=== PATIENT | female | born 1945 | race Caucasian/White ===

== ENCOUNTER 2016-08-24 19:54 | Emergency (ER) | payer OTHER ==
[~2016-08-24] VITALS: Ht 167.6 cm; Wt 59.4 kg
[~2016-08-24 19:54] MED LIST: ACTOS30 MG PO; AMITRIPTYLINE H25 M2; ATORVASTATIN CA40 MG PO; CALCIUM 500 +1 EAC5 PO; CELECOXIB200 M1; CITRATE OF1.75 GM/30 PO; ECOTRIN81 MG PO; LASIX40 M1 PO; MAGNESIUM OXID400 M1 PO; MEDROL DOSEPAK1 PAC PO; METFORMIN HCL500 MG PO; OMEPRAZOLE40 M1 PO; PROAIR HFA0.09 MG/Ac INH; PROAIR HFA8.5 GM INH; ROBITUSSIN W/CO10 ML PO; SYMBICORT 16010.2 GM INH; TRAMADOL HCL50 M1 PO; ZITHROMAX Z-PA250 MG PO
--- NOTE | 2016-08-24 21:09 | ED NECK/BACK PAIN COMPLAINT ---
History of Present Illness General Chief Complaint: Low Back Pain/Injury Stated Complaint: LOW BACK PAIN, INJURY WHILE OPENING A WINDOW Source: patient, family Exam Limitations: no limitations Vital Signs & Intake/Output Vital Signs & Intake/Output Vital Signs Date Time Temp Pulse Resp B/P Pulse O2 O2 Flow FiO2 Ox Delivery Rate 08/246 97.3 91 18 100/73 98 Room Air 08/24 1957 97.8 96 18 83/56 98 Room Air Allergies Coded Allergies: poison tayler extract (RASH, HIVES SEVERE 08/11/15) squash (YELLOW- VOMITING, BUTTERNUT - SEVERE PAIN THROUGH BODY 08/11/15) Reconcile Medications Albuterol Sulfate (Proair Hfa) 90 MCG HFA.AER.AD 2 PUF INH PRN RESPIRATORY ( Reported) Aspirin (Ecotrin) 81 MG ECT 1 TAB PO AD HEART/BLOOD (Reported) Atorvastatin Calcium (Lipitor) 40 MG TAB 1 TAB PO DAILY CHOLESTEROL (Reported ) Budesonide/Formoterol Fumarate (Symbicort 160-4.5 Mcg Inhaler) 160 MCG-4.5 MCG/ ACTUATION HFA.AER.AD 2 PUF INH BID RESPIRATORY (Reported) Calcium Carbonate/Vitamin D3 (Calcium 500 + D Tablet) (Unknown Strength) TABLET (Unknown Dose) PO DAILY SUPPLEMENT (Reported) Cyclobenzaprine HCl 5 MG TABLET 1 TAB PO Q8P PRN PAIN Furosemide (Lasix) 40 MG TABLET 1 TAB PO BID leg edema Ibuprofen 600 MG TABLET 1 TAB PO TID PRN PAIN with food Magnesium Oxide 400 MG TABLET 1 TAB PO DAILY low magnesium Metformin Hydrochloride (Metformin HCl) 500 MG TAB 1 TAB PO BID DIABETES ( Reported) Omeprazole 40 MG CAPSULE.DR 1 CAP PO BID GI (Reported) Pioglitazone Hydrochloride (Actos) 30 MG TAB 1 TAB PO DAILY DIABETES ( Reported) Tramadol HCl 50 MG TABLET 1 TAB PO PRN PAIN (Reported) Triage Note: PT STATES THAT SHE WAS OPENING THE WINDOW AT HOME WHEN SHE FELT A SHARP PAIN ACROSS HER LOW BACK. PAIN HAS BEEN CONSTANT AND IS 10/10, PT HAVING HARD TIME SITTING STILL AT TRIAGE Triage Nurses Notes Reviewed? yes HPI: Approximately noon this afternoon the patient was opening up a window that was stuck. She has sudden onset of low back pain. The pain radiates across her lower back. There is no radiation down her legs. There is no weakness or numbness. There is no incontinence of bowel or bladder. The pain is aching and throbbing in nature. The pain increases with ambulation. She rates the pain as 8 out of 10. Patient states that the pain is making her feel nauseous. Past History Travel History Traveled to [place] past 21 day No Medical History Any Pertinent Medical History? 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 No Review of Systems Review of Systems Constitutional: Reports: no symptoms. Ears, Nose, Throat, Mouth: Reports: no symptoms. Respiratory: Reports: no symptoms. Cardiovascular: Reports: no symptoms. Musculoskeletal: Reports: see HPI, back pain. Neurological/Psychological: Reports: no symptoms. Physical Exam Physical Exam General Appearance: well developed/nourished, alert, awake, moderate distress Head: atraumatic Eyes: Bilateral: PERRL, EOMI. Neck: normal inspection, supple, full range of motion Respiratory: normal breath sounds, chest non-tender, no respiratory distress, lungs clear Cardiovascular: regular rate/rhythm, normal peripheral pulses Gastrointestinal: normal bowel sounds, soft, non-tender, no organomegaly Back: muscle spasm, no vertebral tenderness Extremities: non-tender Straight Leg Raising: Right: Negative. Left: Negative. Neurologic/Psych: no motor/sensory deficits, awake, alert, oriented x 3, normal mood/affect Progress Differential Diagnosis: herniated disc, myofascial strain, T/L spine injury Plan of Care: Orders Procedure Date/time Status URINALYSIS 08/24 2114 Complete Laboratory Tests 08/24/162155: Urine Color YEL, Urine Clarity CLEAR, Urine pH 6.0, Ur Specific [place] 1.020, Urine Protein NEG, Urine Ketones NEG, Urine Nitrite NEG, Urine Bilirubin NEG, Urine Urobilinogen 0.2, Ur Leukocyte Esterase NEG, Ur Microscopic EXAM NOT REQUIRED, Urine Hemoglobin NEG, Urine Glucose NEG Comments: Pain has decreased. Patient states the pain is currently 3 out of 10. Patient feels comfortable going home. Departure Departure Disposition: HOME OR SELF CARE Condition: Stable Clinical Impression Primary Impression: Back pain Secondary Impressions: Muscle strain Referrals: KAREN ESCUDERO MD (PCP/Family) Additional Instructions: Use has moist heat. Return if symptoms worsen or as needed. Departure Forms: Customer Survey General Discharge Information Prescriptions: Current Visit Scripts Cyclobenzaprine HCl 1 TAB PO Q8P PRN PAIN #30 TAB Ibuprofen 1 TAB PO TID PRN PAIN #20 TAB with food
[2016-08-24] MEDS ORDERED: CYCLOBENZAPRINE5 M2 PO (22:41)
[2016-08-24] MEDS ORDERED: IBUPROFEN600 M1 PO (22:41)
[2016-08-24 22:46] VITALS: BP 100/73
== END 2016-08-24 22:48 ==
LOC: ERH 19:54
DX: S39.012A Strain of muscle, fascia and tendon of lower back, initial encounter (principal); M54.5 Low back pain; X50.0XXA Overexertion from strenuous movement or load, initial encounter; Y93.89 Activity, other specified; Y92.9 Unspecified place or not applicable
CPT/HCPCS: 81003; 96372; J1885; J3101

== ENCOUNTER 2016-11-15 09:04 | Observation (INO) | payer OTHER ==
[~2016-11-15] VITALS: Ht 167.6 cm; Wt 59.4 kg
[~2016-11-15 09:04] MED LIST changes: +ASPIRIN EC81 M1 PO; -ATORVASTATIN CA40 MG PO; +CYCLOBENZAPRINE5 M2 PO; -ECOTRIN81 MG PO; +IBUPROFEN600 M1 PO; +LIPITOR40 M1 PO
--- NOTE | 2016-11-15 09:12 | ED GENERAL ADULT ---
History of Present Illness General Chief Complaint: Dizziness Stated Complaint: DIZZY Source: patient, old records Exam Limitations: no limitations Vital Signs & Intake/Output Vital Signs & Intake/Output Vital Signs Date Time Temp Pulse Resp B/P B/P Pulse O2 O2 Flow FiO2 Mean Ox Delivery Rate 11/15 1650 97.4 90 18 91/55 99 Room Air 11/15 1533 97.4 86 18 93/57 97 Room Air Room Air 11/15 1321 97.5 83 18 107/60 97 Room Air Room Air 11/15 0921 98 Room Air 11/15 0921 97.6 98 20 168/70 98 Room Air Allergies Coded Allergies: poison taylre extract (RASH, HIVES SEVERE 08/11/15) squash (YELLOW- VOMITING, BUTTERNUT - SEVERE PAIN THROUGH BODY 08/11/15) Reconcile Medications Aspirin (Ecotrin*) 81 MG TABLET.DR 1 TAB PO DAILY HEART/BLOOD (Reported) Atorvastatin Calcium (Lipitor) 40 MG TABLET 1 TAB PO DAILY CHOLESTEROL ( Reported) Carvedilol 3.125 MG TABLET 1 TAB PO BID HEART/BP (Reported) Cyclobenzaprine HCl 10 MG TABLET 1 TAB PO PRN MUSCLE SPASMS (Reported) Lisinopril 2.5 MG TABLET 1 TAB PO DAILY BP (Reported) Magnesium Oxide 400 MG TABLET 1 TAB PO DAILY low magnesium Metformin HCl 500 MG TABLET 1 TAB PO BID DM (Reported) Omeprazole 40 MG CAPSULE.DR 1 CAP PO BID GI (Reported) Ondansetron HCl 4 MG TABLET 1 TAB PO PRN N/V (Reported) Spironolactone 25 MG TABLET 1 TAB PO DAILY DIURETIC (Reported) Ticagrelor (Brilinta) 90 MG TABLET 1 TAB PO BID BLOOD THINNER (Reported) Torsemide 20 MG TABLET 1 TAB PO BID DIURETIC (Reported) Tramadol HCl 50 MG TABLET 1 TAB PO Q4-6H PRN PAIN (Reported) Trazodone HCl 50 MG TABLET 1 TAB PO PRN SLEEP (Reported) Vitamin B Complex 1 EACH CAPSULE 1 CAP PO DAILY SUPPLEMENT (Reported) Triage Nurses Notes Reviewed? yes Onset: Abrupt Duration: gone now Timing: single episode today Severity: severe Severity Numbers: 7 HPI: Patient is a 71-year-old female with past medical history of diabetes mellitus on metformin, hyperlipidemia, constipation, GERD, aortic aneurysm and Schatzki's ring in which patient was admitted approximately 6 months ago with new onset of CHF AND STABLE ANGINA to [facility] ejection fracture from echocardiogram was noted to be 30% patient does state that approximately 2 weeks later she was admitted to [facility] for concerns of a myocardial infarction in which she had 2 cardiac stents AND AICD WAS placed. 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 RUVALCABA [phone]. Patient was brought in by ambulance for rapid response from [facility] in which patient was in her normal state of health today and while performing physical therapy and exercising she had acute onset of lightheaded sensation chest heaviness and palpitations which lasted approximately 8-10 minutes where patient states that since she has had no symptoms. Patient denies any fever chills arm pain jaw pain leg swelling hemoptysis nausea vomiting diaphoresis. Patient took an 81 mg of aspirin today. (MERLIN WEBB) Past History Travel History Traveled to [place] past 21 day No Medical History Any Pertinent Medical History? 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 No (MERLIN WEBB) Review of Systems Review of Systems Constitutional: Reports: no symptoms. EENTM: Reports: no symptoms. Respiratory: Reports: see HPI. Denies: cough, short of breath. Cardiovascular: Reports: see HPI, chest pain, palpitations. GI: Reports: no symptoms. Genitourinary: Reports: no symptoms. Musculoskeletal: Reports: no symptoms. Skin: Reports: no symptoms. Neurological/Psychological: Reports: no symptoms. Hematologic/Endocrine: Reports: no symptoms. Immunologic/Allergic: Reports: no symptoms. All Other Systems: Reviewed and Negative (MERLNI WEBB) Physical Exam Physical Exam General Appearance: no apparent distress, alert, comfortable Comments: Well-developed well-nourished person in no acute distress HEENT: Normal EENT exam Neck: Supple, no lymphadenopathy, normal range of motion without pain or tenderness Back: Nontender, no CVA tenderness. Cardiovascular: Regular rate and rhythms no murmurs rubs or gallops, normal JVP Respiratory: Chest nontender. No respiratory distress.breath sounds clear to auscultation bilaterally Abdomen: Soft, nontender nondistended, no appreciable organomegaly. Normal bowel sounds. No ascites Extremity: No edema, no calf tenderness to palpation, normal and equal pulses. Neuro: Alert oriented x3, motor sensory normal, Skin: No appreciable rash on exposed skin, skin is warm and dry. Psych: Mood and affect is normal, memory and judgment is normal. Core Measures ACS in differential dx? Yes ASA ordered for poss ACS? Yes-ordered CVA/TIA Diagnosis: No Severe Sepsis Present: No Septic Shock Present: No (TORO HERBERT,MERLIN) Progress Differential Diagnoses I considered the following diagnoses in my evaluation of the patient: [ Myocardial infarction, electrolyte abnormality, ANGINA,CHF, pneumothorax, hemothorax, aortic dissection, AAA,,] Plan of Care: Orders Procedure Date/time Status CBC WITHOUT DIFFERENTIAL 11/16 06 Active BASIC ELECTROLYTES PLUS BUN&CR 11/16 0600 Active Heart Healthy Diet 11/15 D Active TROPONIN LEVEL 11/15 2130 Active EKG 11/15 2130 Active TROPONIN LEVEL 11/15 1530 Active Pathway - chart 11/15 1525 Active House Staff 11/15 1525 Active Patient Data 11/15 1525 Active Code Status 11/15 1525 Active ECHOCARDIOGRAM 11/15 1525 Active Patient Data 11/[address] in observation 11/15 1500 Active EKG 11/15 1500 Active Add-on Test (ER Only) 11/15 1402 Active D-DIMER 11/15 1402 Complete Intake & Output 11/15 1259 Active Telemetry/Firearms Sales Associate 11/15 0917 Active TROPONIN LEVEL 11/15 0917 Complete COMPREHENSIVE METABOLIC PANEL 11/15 0917 Complete CBC WITHOUT DIFFERENTIAL 11/15 0917 Complete B-TYPE NATRIURETIC PEP (BNP) 11/15 0917 Complete EKG 11/15 0916 Active Lab Add-on Test 11/15 UNK Active VTE Mechanical Prophylaxis 11/15 UNK Active Telemetry/Firearms Sales Associate 11/15 UNK Active Current Medications Sig/Andrews Start time Last Medication Dose Stop Time Status Admin Heparin Sodium 5,000 UNIT Q8 11/15 2200 AC (Porcine) Acetaminophen 650 MG Q6P PRN 11/15 1530 AC (Tylenol) Morphine Sulfate 1 MG Q6-PRN PRN 11/15 1530 AC (Morphine) Oxycodone HCl 5 MG Q6P PRN 11/15 1530 AC (Roxicodone) Laboratory Tests 11/15/16 1611: Troponin I 0.02 11/15/16 0932: Anion Gap 13, Estimated GFR 49 L, BUN/Creatinine Ratio 25.5 H, Glucose 213 H, Calcium 9.3, Total Bilirubin 0.6, AST 21, ALT 25, Alkaline Phosphatase 144 H, Troponin I 0.02, Avp-S-Fafurzlfcbx Pept 9700 H, Total Protein 6.7, Albumin 4.0, Globulin 2.7, Albumin/Globulin Ratio 1.5, D-Dimer High Sensitivty 507 H, CBC w Diff NO MAN DIFF REQ, RBC 3.87 L, MCV 81.0, MCH 27.1, RDW 18.3 H, MPV 8.1, Gran % 68.7, Lymphocytes % 20.5, Monocytes % 7.2, Eosinophils % 2.9, Basophils % 0.7, Absolute Granulocytes 6.1, Absolute Lymphocytes 1.8, Absolute Monocytes 0.6 , Absolute Eosinophils 0.3, Absolute Basophils 0.1, PUBS MCHC 33.5 Patient currently is resting comfortably at bedside patient will be administered prophylactic therapeutic dose of aspirin. flash welder placed showing normal sinus rhythm 11/15/2016 11:37:45 AM patient still resting comfortable bedside noted be normal sinus rhythm on front desk team member, no exacerbation of any symptoms. 11/15/2016 12:00:56 PM patient's initial blood work was unremarkable chest x-ray unremarkable patient had no symptoms and is resting comfortable at bedside. I reviewed patient's blood work with her. I also called Dr. ruvalcaba's service in which 's on-call in which the cardiology answering service will page him DISCUSSED PT WITH IN WHICH DUE TO HPI AND HX OF [place] AND PRESENT SYMPTOMS THAT HE ADVISED PT TO BE ADMITTED TO TELEMETRY observation. Discussed patient with Dr. Rasheed, Dr. Roblero, and Dr. Blackmon who all agree with disposition plan and which Dr. Rasheed will take patient under his service. Dr. Blackmon will consult. Patient currently resting currently at bedside. She was aware of disposition plan (MERLIN WEBB) Diagnostic Imaging: Viewed by Me: Radiology Read, CT Scan. Radiology Impression: SEE COMMENTS Initial ED EKG: NSR, 93 BPM, LBBB Comments: PATIENT: ALLI OLSEN PRESENT AGE: 71 PATIENT ACCOUNT NO: [id number] : 47 LOCATION: [facility] ORDERING PHYSICIAN: MERLIN HERBERT SERVICE DATE: 11/15/16 EXAM TYPE: CAT - CTA CHEST-PULMONARY EMBOLISM EXAMINATION: CT ANGIOGRAM OF THE CHEST WITH AND WITHOUT CONTRAST (CT PULMONARY ANGIOGRAM FOR PE) CLINICAL INFORMATION: Chest pain with elevated d-dimer. COMPARISON: 08/11/2015. TECHNIQUE: Prior to contrast administration, noncontrast localization images were obtained. Subsequently, multidetector volumetric imaging was performed from the thoracic inlet to below the diaphragms following the administration of 95 mL Optiray 350 intravenous contrast. No contrast reaction reported. Sagittal, coronal, and MIP oblique sagittal reformatted images were obtained on the CT workstation, uploaded to PACS, and reviewed. Total exam dose-length product 301 mGy-cm. FINDINGS: QUALITY OF STUDY/CONTRAST BOLUS: Satisfactory PULMONARY ARTERIES: The pulmonary arterial tree is well opacified without evidence of filling defects to suggest underlying emboli. THORACIC AORTA: There are atherosclerotic aortic changes without evidence of aneurysm or dissection on this exam which was focused on the pulmonary arterial tree. LUNG: Fairly extensive emphysematous changes are again noted predominantly involving the upper lobes. There is no evidence of suspicious appearing pulmonary nodules PLEURA: There are trace bilateral pleural effusions, a new finding compared with the previous exam. MEDIASTINUM: There is no lower cervical, mediastinal, or hilar lymphadenopathy. There is a small sliding hiatal hernia suspected. CHEST WALL/AXILLA: No axillary or internal mammary lymphadenopathy. OSSEOUS STRUCTURES: Osteopenic. There is a mild L1 compression deformity without evidence of an acute fracture line on today's exam which is new compared with the most recent cross-sectional exams, abdomen and pelvis angiogram 01/18/2016. No aggressive appearing osseous lesions are seen. UPPER ABDOMEN: There is extensive atherosclerotic aortic calcification with the proximal portion of the previously identified abdominal aortic aneurysm unchanged in appearance. The entire aneurysm is not included. Stomach is debris-filled likely a recently ingested meal. Included colon is stool-filled. IMPRESSION: 1. No evidence of pulmonary embolism. 2. Fairly extensive emphysematous changes are again noted. 3. Extensive atherosclerotic aortic changes with abdominal aortic aneurysm not completely evaluated on today's exam. 4. L1 compression deformity is new compared with the 01/18/2016 exam, clinical correlation recommended. VTE: Negative for pulmonary embolism. DICTATED BY: JOSELYN BILLY MD DATE/TIME DICTATED:11/15/161521 REGIONAL TELECOMMUNICATIONS SPECIALIST:MORAIMA PATIENT: ALLI OLSEN PRESENT AGE: 71 PATIENT ACCOUNT NO: [id number] : 47 LOCATION: [facility] ORDERING PHYSICIAN: MERLIN HERBERT SERVICE DATE: 11/15/16 EXAM TYPE: RAD - XRY-CHEST XRAY, PA AND LATERAL EXAMINATION: XR CHEST CLINICAL INFORMATION: Presyncope COMPARISON: 04/19/2016 TECHNIQUE: 2 views of the chest were obtained. FINDINGS: Borderline enlarged cardiac silhouette, accentuated by rotated positioning. Pacemaker/AICD present, with the tips extending to the right atrium and right ventricle. Lungs are symmetrically expanded. No evidence of focal consolidation, effusion, edema or pneumothorax. Mild dorsal spine degenerative changes. IMPRESSION: No evidence of acute process. DICTATED BY: COLE RITTER MD DATE/TIME DICTATED:11/15/161015 REGIONAL TELECOMMUNICATIONS SPECIALIST:MORAIMA DATE/TIME TRANSCRIBED:11/15/161015 (MERLIN WEBB) Departure Departure Condition: Stable Clinical Impression Primary Impression: Chest pain Referrals: KAREN RASHEED MD (PCP/Family) Departure Forms: Customer Survey General Discharge Information (MERLIN WEBB) Departure Disposition: STILL A PATIENT Observation Note Spoke With: KAREN RASHEED MD Physician Advisor Notified: DYANA BEAR DO Place Patient In: Non-ED OBS Care Area Rationale for Observation: My rational for observation is as follows [SERIAL ENZYMES, TELE MONITORING, FOLLOW UP CT ANGIO]. PA/SOURCER Co-Sign Statement Statement: ED Attending supervision documentation- [X] I saw and evaluated the patient. I have also reviewed all the pertinent lab results and diagnostic results. I agree with the findings and the plan of care as documented in the PA's/SOURCER's documentation. [X] I have reviewed the ED Record and agree with the PA's/SOURCER's documentation. [] Additions or exceptions (if any) to the PAs/SOURCER's note and plan are summarized below: [] (ANISHA HENDRIX,NEWTON Barone) Critical Care Note Critical Care Note Critical Care Time: non-applicable (MERLIN WEBB)
--- NOTE | 2016-11-15 09:20 | NUR ---
PT BIBA FROM CARDIAC REHAB A RAPID RESPONSE AFTER DIZZINESS AND CHEST PRESSURE EPISODE. PT STATES SHE WAS DOING A BACK THERAPY EXCERCISE WHEN SHE GOT VERY DIZZY AND DEVELOPED CHEST PRESSURE. PT WAS FOUND BY EMS TO BE HYPOTENSIVE. ON ARRIVAL IN ER PT HS NO COMPLAINTS AND STATES DIZZINESS AND CHEST PRESSURE SUBSIDED. PT BP ON ARRIVAL 168/70 PT TO ROOM 16 ON ARRIVAL, EKG DONE, PT PLACED ON CARADIC MONITOR.
--- NOTE | 2016-11-15 09:21 | NUR ---
KEON ENGEL AT BEDSIDE
--- NOTE | 2016-11-15 09:38 | NUR ---
BLDS DRAWN AND SENT TO LAB EKG DONE
[2016-11-15 09:41] LABS: ABSOLUTE BASOPHIL COUNT 0.1 /CUMM (0.0-0.2); ABSOLUTE EOSINOPHIL COUNT 0.3 /CUMM (0.0-0.7); ABSOLUTE GRANULOCYTE CT 6.1 /CUMM (1.4-6.5); ABSOLUTE LYMPH COUNT 1.8 /CUMM (1.2-3.4); ABSOLUTE MONOCYTE COUNT 0.6 /CUMM (0.10-0.60); BASOPHIL % 0.7 % (0.0-2.0); EOSINOPHIL % 2.9 % (0-5); GRANULOCYTE % 68.7 % (42.2-75.2); HEMATOCRIT 31.4 % (37-47); MEAN CORPUSCULAR HGB 27.1 PG (27.0-31.0); MEAN CORPUSCULAR HGB CONC 33.5 G/DL (33.0-37.0); MEAN PLATELET VOLUME 8.1 FL (7.4-10.4); PLATELET COUNT 233 /CUMM (130-400); RBC DISTRIBUTION WIDTH 18.3 % (11.5-14.5); RED BLOOD CELL CT 3.87 /CUMM (4.20-5.40); WHITE BLOOD CELL COUNT 8.9 /CUMM (4.8-10.8)
--- NOTE | 2016-11-15 10:20 | NUR ---
PT MEDICATED WITH ASA 243MG PO PER eMAR.
--- NOTE | 2016-11-15 10:45 | RADIOLOGY REPORT ---
EXAMINATION: XR CHEST CLINICAL INFORMATION: Presyncope COMPARISON: 04/19/2016 TECHNIQUE: 2 views of the chest were obtained. FINDINGS: Borderline enlarged cardiac silhouette, accentuated by rotated positioning. Pacemaker/AICD present, with the tips extending to the right atrium and right ventricle. Lungs are symmetrically expanded. No evidence of focal consolidation, effusion, edema or pneumothorax. Mild dorsal spine degenerative changes. IMPRESSION: No evidence of acute process.
--- NOTE | 2016-11-15 11:43 | NUR ---
KEON ENGEL TO BEDSIDE TO DISCUSS RESULTS AND POC.
--- NOTE | 2016-11-15 12:58 | NUR ---
INFORMED WAITING PERFORMED AT THIS TIME. PT AND SPOUSE UPDATED THAT KEON ENGEL IS SPEAKING WITH RANGE CONSERVATIONIST PREKINDERGARTEN TEACHER AT THIS TIME. PT OFFERS NO COMPLAINTS AT THIS TIME, VERBALIZES UNDERSTANDING.
--- NOTE | 2016-11-15 13:02 | NUR ---
KEON ENGEL TO BEDSIDE TO DISCUSS RESULTS AND POC.
--- NOTE | 2016-11-15 13:16 | NUR ---
LUNCH TRAY ORDERED. PT AMBULATORY TO AND FROM BATHROOM WITH NO DIFFICULTIES. CONTINUES NSR IN THE 80'S ON CM DENIES CHEST TIGHTNESS, PAIN, SOB, DIXXINESS.
--- NOTE | 2016-11-15 15:15 | Cons- Cardiology ---
General Information and HPI Consulting Request Date of Consult: 11/15/16 Requested By: Dr. Rasheed Reason for Consult: Chest pain History of Present Illness: Patient is a 71-year-old female with history of CAD, diabetes mellitus, chronic systolic heart failure, ICD she is status post recent stent placement with her online marketing analyst at [place]. While in physical therapy, she developed palpitations, chest discomfort, shortness of breath. She is now feeling better. Chest discomfort was a sharp pain which was a 4 out of 10 and lasted for under a minute. There is no radiation of the chest discomfort. Allergies/Medications Allergies: Coded Allergies: poison tayler extract (RASH, HIVES SEVERE 08/11/15) squash (YELLOW- VOMITING, BUTTERNUT - SEVERE PAIN THROUGH BODY 08/11/15) Home Med List: Aspirin (Ecotrin*) 81 MG TABLET.DR 1 TAB PO DAILY HEART/BLOOD (Reported) Atorvastatin Calcium (Lipitor) 40 MG TABLET 1 TAB PO DAILY CHOLESTEROL ( Reported) Carvedilol 3.125 MG TABLET 1 TAB PO BID HEART/BP (Reported) Cyclobenzaprine HCl 10 MG TABLET 1 TAB PO PRN MUSCLE SPASMS (Reported) Lisinopril 2.5 MG TABLET 1 TAB PO DAILY BP (Reported) Magnesium Oxide 400 MG TABLET 1 TAB PO DAILY low magnesium Metformin HCl 500 MG TABLET 1 TAB PO BID DM (Reported) Omeprazole 40 MG CAPSULE.DR 1 CAP PO BID GI (Reported) Ondansetron HCl 4 MG TABLET 1 TAB PO PRN N/V (Reported) Spironolactone 25 MG TABLET 1 TAB PO DAILY DIURETIC (Reported) Ticagrelor (Brilinta) 90 MG TABLET 1 TAB PO BID BLOOD THINNER (Reported) Torsemide 20 MG TABLET 1 TAB PO BID DIURETIC (Reported) Tramadol HCl 50 MG TABLET 1 TAB PO Q4-6H PRN PAIN (Reported) Trazodone HCl 50 MG TABLET 1 TAB PO PRN SLEEP (Reported) Vitamin B Complex 1 EACH CAPSULE 1 CAP PO DAILY SUPPLEMENT (Reported) Current Medications: Current Medications Sig/Andrews Start time Last Medication Dose Route Stop Time Status Admin Acetaminophen 650 MG Q6P PRN 11/15 1530 AC PO Aspirin Buffered 81 MG DAILY 11/16 1000 AC 11/16 PO 0911 Atorvastatin Calcium 40 MG DAILY 11/15 1714 AC 11/16 PO 0911 Carvedilol 3.125 MG BID 11/15 2200 AC 11/16 PO 0911 Cyclobenzaprine HCl 10 MG Q8P PRN 11/15 1730 AC PO Heparin Sodium 5,000 UNIT Q8 11/15 2200 AC 11/16 (Porcine) SC 0548 Insulin Aspart 0 TIDAC 11/16 0800 AC 11/16 SC 1200 Lisinopril 2.5 MG DAILY 11/16 1000 AC 11/16 PO 0911 Magnesium Oxide 400 MG DAILY 11/16 1000 AC 11/16 PO 0911 Magnesium Sulfate 1 GM ONCE ONE 11/16 0130 DC 11/16 Dextrose/Water 100 ML IV 11/16 0529 0143 Morphine Sulfate 1 MG Q6-PRN PRN 11/15 1530 DC IV Omeprazole 40 MG DAILY AC 11/16 0700 AC 11/16 PO 0544 Oxycodone HCl 5 MG Q6P PRN 11/15 1530 AC PO Spironolactone 25 MG DAILY 11/16 1000 AC 11/16 PO 0911 Ticagrelor 90 MG BID 11/15 2200 AC 11/16 PO 0911 Torsemide 20 MG 0730,1630 11/16 0730 AC 11/16 PO 0747 Tramadol HCl 50 MG Q4-6 PRN PRN 11/15 1730 AC PO Trazodone HCl 50 MG Q8P PRN 11/15 1730 AC 11/15 PO 2146 Review of Systems Review of Systems: No rash. No tremor. No melena. All other systems were reviewed, and were noted to be negative. Past History Travel History Traveled to [place] past 21 day No Medical History Neurological: NONE EENT: NONE Cardiovascular: aortic aneurysm, CHF, hyperlipidemia, myocardial infarction Respiratory: NONE Gastrointestinal: GERD, SCHATZKI'S RING Hepatic: NONE Renal: NONE Musculoskeletal: NONE Psychiatric: NONE Endocrine: diabetes Blood Disorders: NONE Cancer(s): NONE ANIMAL ASSISTED THERAPIST/Reproductive: NONE Surgical History Surgical History: non-contributory Family History Relations & Conditions If Any: MOTHER Stroke Psychosocial History Who Do You Live With? spouse Services at Home: None Primary Language: Cape Verdean ETOH Use: denies use Functional Ability ADLs Independent: dressing, eating, toileting, bathing. Ambulation: independent IADLs Independent: shopping, housework, finances, food prep, telephone, transportation , medication admin. Exam & Diagnostic Data Vital Signs and I&O Vital Signs Date Time Temp Pulse Resp B/P B/P Pulse O2 O2 Flow FiO2 Mean Ox Delivery Rate 11/16 0916 110 110/70 11/16 0911 110 110/70 11/16 0911 110 110/70 11/16 0800 97 Room Air 11/16 0640 98.6 102 20 100/76 97 Room Air 11/16 0107 98.5 99 20 100/58 98 Room Air 11/15 2140 96 96/50 07/ 2037 Room Air 11/15 1816 97.7 96 16 96/50 100 Room Air 11/15 1757 90 16 134/62 98 Room Air 11/15 1650 97.4 90 18 91/55 99 Room Air 11/15 1533 97.4 86 18 93/57 97 Room Air Room Air 11/15 1321 97.5 83 18 107/60 97 Room Air Room Air Intake & Output 11/16 1600 11/16 0800 11/16 0000 11/15 1600 11/15 0800 11/15 0000 Intake Total 100 100 Output Total Balance 100 100 Intake, Oral 100 100 Patient 131 lb Weight Physical Exam: Gen: The patient is in no acute distress HEENT: Normal nose, ears, and oropharynx. Pupils equal bilaterally. Conjunctiva normal. Neck: Supple with no JVD, no masses, and no thyromegaly Lungs: Clear to auscultation with normal respiratory effort Heart: RRR, S1, S2, no murmurs. 1+ peripheral edema, 1+ pulses in the lower extremities bilaterally Abdomen: Soft, nontender, no masses. No hepatomegaly. No splenomegaly Extremities: No clubbing or cyanosis. Normal muscle strength in the upper and lower extremities Skin: Normal skin turgor with no skin ulcers or lesions noted. Neuro: Cranial nerves intact. Sensation intact Psych: Alert and oriented 3 with appropriate affect Labs/Eben Results: Laboratory Tests 11/16 11/15 11/15 0734 2250 1611 Chemistry Sodium (137 - 145 mmol/L) 135 L Potassium (3.5 - 5.1 mmol/L) 4.7 Chloride (98 - 107 mmol/L) 98 Carbon Dioxide (22 - 30 mmol/L) 24 Anion Gap (5 - 16) 14 BUN (7 - 17 mg/dL) 26 H Creatinine (0.5 - 1.0 mg/dL) 1.1 H Estimated GFR (>60 ml/min) 49 L BUN/Creatinine Ratio (7 - 25 %) 23.6 Troponin I (< 0.11 ng/ml) 0.02 0.02 Hematology CBC w Diff NO MAN DIFF REQ WBC (4.8 - 10.8 /CUMM) 11.0 H RBC (4.20 - 5.40 /CUMM) 4.32 Hgb (12.0 - 16.0 G/DL) 11.8 L Hct (37 - 47 %) 35.3 L MCV (81.0 - 99.0 FL) 81.6 MCH (27.0 - 31.0 PG) 27.2 RDW (11.5 - 14.5 %) 18.9 H Plt Count (130 - 400 /CUMM) 248 MPV (7.4 - 10.4 FL) 8.3 Gran % (42.2 - 75.2 %) 77.8 H Lymphocytes % (20.5 - 51.1 %) 16.3 L Monocytes % (1.7 - 9.3 %) 4.1 Eosinophils % (0 - 5 %) 1.8 Basophils % (0.0 - 2.0 %) 0 L Absolute Granulocytes (1.4 - 6.5 /CUMM) 8.6 H Absolute Lymphocytes (1.2 - 3.4 /CUMM) 1.8 Absolute Monocytes (0.10 - 0.60 /CUMM) 0.5 Absolute Eosinophils (0.0 - 0.7 /CUMM) 0.2 Absolute Basophils (0.0 - 0.2 /CUMM) 0 PUBS MCHC (33.0 - 37.0 G/DL) 33.4 07/03 0932 Chemistry Sodium (137 - 145 mmol/L) 137 Potassium (3.5 - 5.1 mmol/L) 4.6 Chloride (98 - 107 mmol/L) 99 Carbon Dioxide (22 - 30 mmol/L) 24 Anion Gap (5 - 16) 13 BUN (7 - 17 mg/dL) 28 H Creatinine (0.5 - 1.0 mg/dL) 1.1 H Estimated GFR (>60 ml/min) 49 L BUN/Creatinine Ratio (7 - 25 %) 25.5 H Glucose (65 - 99 mg/dL) 213 H Calcium (8.4 - 10.2 mg/dL) 9.3 Magnesium (1.6 - 2.3 mg/dL) 1.4 L Total Bilirubin (0.2 - 1.3 mg/dL) 0.6 AST (14 - 36 U/L) 21 ALT (9 - 52 U/L) 25 Alkaline Phosphatase (<127 U/L) 144 H Troponin I (< 0.11 ng/ml) 0.02 Gtb-Q-Gcshabysmnc Pept (<125 pg/mL) 9700 H Total Protein (6.3 - 8.2 g/dL) 6.7 Albumin (3.5 - 5.0 g/dL) 4.0 Globulin (1.9 - 4.2 gm/dL) 2.7 Albumin/Globulin Ratio (1.1 - 2.2 %) 1.5 Coagulation D-Dimer High Sensitivty (0 - 243 ng/ml) 507 H Hematology CBC w Diff NO MAN DIFF REQ WBC (4.8 - 10.8 /CUMM) 8.9 RBC (4.20 - 5.40 /CUMM) 3.87 L Hgb (12.0 - 16.0 G/DL) 10.5 L Hct (37 - 47 %) 31.4 L MCV (81.0 - 99.0 FL) 81.0 MCH (27.0 - 31.0 PG) 27.1 RDW (11.5 - 14.5 %) 18.3 H Plt Count (130 - 400 /CUMM) 233 MPV (7.4 - 10.4 FL) 8.1 Gran % (42.2 - 75.2 %) 68.7 Lymphocytes % (20.5 - 51.1 %) 20.5 Monocytes % (1.7 - 9.3 %) 7.2 Eosinophils % (0 - 5 %) 2.9 Basophils % (0.0 - 2.0 %) 0.7 Absolute Granulocytes (1.4 - 6.5 /CUMM) 6.1 Absolute Lymphocytes (1.2 - 3.4 /CUMM) 1.8 Absolute Monocytes (0.10 - 0.60 /CUMM) 0.6 Absolute Eosinophils (0.0 - 0.7 /CUMM) 0.3 Absolute Basophils (0.0 - 0.2 /CUMM) 0.1 PUBS MCHC (33.0 - 37.0 G/DL) 33.5 Diagnostic Data EKG Results EKG tracing is apparently reviewed, and reveals sinus tachycardia at 99 with premature ventricular contractions and left bundle-branch block CXR Results Chest X-ray: Negative Other Results CTA chest: 1. No evidence of pulmonary embolism. 2. Fairly extensive emphysematous changes are again noted. 3. Extensive atherosclerotic aortic changes with abdominal aortic aneurysm not completely evaluated on today's exam. 4. L1 compression deformity is new compared with the 01/18/2016 exam, clinical correlation recommended. Assessment/Plan Assessment/Plan Assessment: 1. CAD, status post recent stent 2. Chronic systolic heart failure with ischemic cardiomyopathy 3. Palpitations, rule out for Isiah infarction. No significant arrhythmias. Plan: * Monitor on telemetry overnight * Check serial troponin * Likely ready for discharge tomorrow stable Consult Acknowledgment - Thank you for your consult request.
--- NOTE | 2016-11-15 15:22 | NUR ---
TAX REVENUE OFFICER DR. COE TO BEDSIDE FOR EVAL.
--- NOTE | 2016-11-15 15:42 | NUR ---
HOUSESTAFF AT BEDSIDE FOR EVAL.
--- NOTE | 2016-11-15 15:44 | NUR ---
HOUSE STAFF AT BEDSIDE FOR EVAL AT THIS TIME.
--- NOTE | 2016-11-15 16:12 | History & Physical ---
MARK HENDRIX,MARTHA 11/15/16 1612: General Information and HPI MD Statement: I have seen and personally examined ALLI OLSEN and documented this H&P. The patient is a 71 year old F who presented with a patient stated chief complaint of dizziness and palpatations. Source of Information: patient Exam Limitations: no limitations History of Present Illness: This is a 71 year old female with a PMH significant for AA, CAD, CHF, DM controlled with metformin, Schatzki's ring, AICD, that presented to us with a chief complaint of dizziness and palpitations. Patient was at physical therapy when these developed suddenly. She did not fall but felt weak and could not continue the exercises. She was brought to us for further evaluation. In the ED she denied any SOB or CP, syncope, diaphoresis. She denied any recent history of infection or sick contacts, nausea vomiting diarrhea. Of note, the patient was most recently admitted to [place] 04/30 for signs of stable angina and was found to have an EF of 30%. She subsequenly had a cardiac cath done 2 weeks later and 2 stents placed (unspecified type) with an AICD. 3 weeks later, she saw her analytics associate Dr. Cunningham who admitted her for marked hypotension. She was completing cardiac rehab with 3x weekly visits. She has since remained symptom free until today. In the ED her BP was 168/70, temperature 97.6, pulse 98, respiratory rate 20, 96 %RA sat. Labs showed a proBNP of 9200, ddimer of 507, blood glucose 213, BUN/CR of 2.8/ 1.1. EKG NSR 93 QTC 533 QRS 146 CTA NO EVIDENCE OF PE CXRAY NO EVIDENCE OF ACUTE PROCESS Allergies/Medications Allergies: Coded Allergies: poison tayler extract (RASH, HIVES SEVERE 08/11/15) squash (YELLOW- VOMITING, BUTTERNUT - SEVERE PAIN THROUGH BODY 08/11/15) Home Med list Aspirin (Ecotrin*) 81 MG TABLET.DR 1 TAB PO DAILY HEART/BLOOD (Reported) Atorvastatin Calcium (Lipitor) 40 MG TABLET 1 TAB PO DAILY CHOLESTEROL ( Reported) Carvedilol 3.125 MG TABLET 1 TAB PO BID HEART/BP (Reported) Cyclobenzaprine HCl 10 MG TABLET 1 TAB PO PRN MUSCLE SPASMS (Reported) Lisinopril 2.5 MG TABLET 1 TAB PO DAILY BP (Reported) Magnesium Oxide 400 MG TABLET 1 TAB PO DAILY low magnesium Metformin HCl 500 MG TABLET 1 TAB PO BID DM (Reported) Omeprazole 40 MG CAPSULE.DR 1 CAP PO BID GI (Reported) Ondansetron HCl 4 MG TABLET 1 TAB PO PRN N/V (Reported) Spironolactone 25 MG TABLET 1 TAB PO DAILY DIURETIC (Reported) Ticagrelor (Brilinta) 90 MG TABLET 1 TAB PO BID BLOOD THINNER (Reported) Torsemide 20 MG TABLET 1 TAB PO BID DIURETIC (Reported) Tramadol HCl 50 MG TABLET 1 TAB PO Q4-6H PRN PAIN (Reported) Trazodone HCl 50 MG TABLET 1 TAB PO PRN SLEEP (Reported) Vitamin B Complex 1 EACH CAPSULE 1 CAP PO DAILY SUPPLEMENT (Reported) Compliance With Home Meds: GOOD Past History Travel History Traveled to [place] past 21 day No Medical History Blood Transfusion Hx: No Neurological: NONE EENT: NONE, cataracts Cardiovascular: aortic aneurysm, CHF, hyperlipidemia, myocardial infarction Respiratory: NONE Gastrointestinal: GERD, SCHATZKI'S RING Hepatic: NONE Renal: NONE Musculoskeletal: NONE Psychiatric: NONE Endocrine: diabetes Blood Disorders: NONE Cancer(s): NONE PAY AGENT/Reproductive: NONE History of MRSA: No History of VRE: No History of CDIFF: No Surgical History Surgical History: non-contributory ECHO Results (as available) Date of last Echo 04/20/16 EF% 30 Past Family/Social History Family History Relations & Conditions if any MOTHER Stroke Psychosocial History Where do you live? Home Who Do You Live With? spouse Services at Home: None Primary Language: Indonesian Smoking Status: Former Smoker (1 PPD for 50 years ) ETOH Use: denies use Illicit Drug Use: denies illicit drug use Other Social History: no children, retired Functional Ability ADLs Independent: dressing, eating, toileting, bathing. Ambulation: independent IADLs Independent: shopping, housework, finances, food prep, telephone, transportation , medication admin. Review of Systems Review of Systems Constitutional: Reports: weakness. EENTM: Reports: no symptoms. Cardiovascular: Reports: palpitations. Denies: chest pain, edema, orthopena, peripheral edema, syncope. Respiratory: Reports: short of breath. Denies: cough. GI: Reports: no symptoms. All Other Systems: Reviewed and Negative Exam & Diagnostic Data Last 24 Hrs of Vital Signs/I&O Vital Signs Date Time Temp Pulse Resp B/P B/P Pulse O2 O2 Flow FiO2 Mean Ox Delivery Rate 11/15 2036 Room Air 11/15 1816 97.7 96 16 96/50 100 Room Air 11/15 1757 90 16 134/62 98 Room Air 11/15 1650 97.4 90 18 91/55 99 Room Air 11/15 1533 97.4 86 18 93/57 97 Room Air Room Air 11/15 1321 97.5 83 18 107/60 97 Room Air Room Air 11/15 0921 98 Room Air 11/15 0921 97.6 98 20 168/70 98 Room Air Physical Exam General Appearance Alert, Oriented X3, Cooperative, No Acute Distress Skin No Rashes, No Breakdown, No Significant Lesion Skin Temp/Moisture Exam: Warm/Dry Sepsis Skin Exam (color): Normal for Ethnicity HEENT Atraumatic, PERRLA, EOMI, Mucous Membr. moist/pink Neck No JVD Cardiovascular Regular Rate, Normal S1, Normal S2, No Murmurs, Gallops, Rubs Lungs Clear to Auscultation, Normal Air Movement Abdomen Normal Bowel Sounds, Soft, No Tenderness Neurological Normal Speech Extremities No Edema, Normal Pulses Vascular Normal Pulses, Pulses Symmetrical Sepsis Peripheral Pulse Location: Radial Sepsis Peripheral Pulse Exam: Normal Last 24 Hrs of Labs/Eben: Laboratory Tests 11/15/16 1611: Troponin I 0.02 11/15/16 0932: Anion Gap 13, Estimated GFR 49 L, BUN/Creatinine Ratio 25.5 H, Glucose 213 H, Calcium 9.3, Magnesium 1.4 L, Total Bilirubin 0.6, AST 21, ALT 25, Alkaline Phosphatase 144 H, Troponin I 0.02, Zvg-N-Fflltjhaspi Pept 9700 H, Total Protein 6.7, Albumin 4.0, Globulin 2.7, Albumin/Globulin Ratio 1.5, D-Dimer High Sensitivty 507 H, CBC w Diff NO MAN DIFF REQ, RBC 3.87 L, MCV 81.0, MCH 27.1, RDW 18.3 H, MPV 8.1, Gran % 68.7, Lymphocytes % 20.5, Monocytes % 7.2, Eosinophils % 2.9, Basophils % 0.7, Absolute Granulocytes 6.1, Absolute Lymphocytes 1.8, Absolute Monocytes 0.6, Absolute Eosinophils 0.3, Absolute Basophils 0.1, PUBS MCHC 33.5 Diagnostic Data EKG Results NSR 93 QTC 533 CXR Results clear Other Results CTA CHEST VTE: Negative for pulmonary embolism Assessment/Plan Assessment: This patient is a 71 year old female with a PMH significant for CAD 2 STENTS AICD PLACED 04/[address], AA, CHF, DM, HLD that presented from her cardiac rehabilitation program with acute complains of dizziness, palpitations, SOB. Symptoms have currently resolved but her analytics associate has requested observation. 1. palpitations, dizziness, SOB: dehydration vs. hypotension vs. vasovagal vs. arrhythmia vs. ACS vs. CHF 2. qtc prolongation 3. ATN 4. HYPOMAGNESEMIA 5. COPD 6. GERD 7. DM Plan: 1. * Observe patient on tele for arrhythmic changes * Trend EKGs and troponins: so far does not support ACS * Repeat echocardiogram * Orthostatics * continue aspirin, lisinopril, carvedilol 2. Repeat EKG and avoid zofran and other QTC prolonging drugs 3. Likely will resolve with rehydration. Watch Cr and if worsens, consider removing lisinopril. 4. replete mg. 5. continue copd home meds 6. continue home gerd meds 7. * start sliding scale insulin * Hold metformin and pioglitazone As Ranked By This Provider Problem List: 1. CHF (congestive heart failure) 2. CAD (coronary artery disease) 3. Acute kidney injury 4. GERD (gastroesophageal reflux disease) 5. Hypomagnesemia 6. COPD (chronic obstructive pulmonary disease) 7. Diabetes mellitus type 2 in nonobese Core Measures/Miscellaneous Acute Coronary Syndrome ACS Diagnosis: Yes Date of most recent Echo 04/30/16 Last Known EF % 30 DRU/ARB For EF <40% Yes ASA W/I 24hr of admit Yes Beta-Tho W/I 24hrs Yes LDL assessed W/I 24 hrs Yes Cerebrovascular Accident CVA/TIA Diagnosis: No Congestive Heart Failure CHF Diagnosis: Yes Date of most recent Echo: 04/30/16 Last Known EF %: 30 DRU/ARB for EF <40%: Yes VTE (View Protocol) VTE Risk Factors: Acute medical illness, Age > 40, Smoking [facility] prophylaxis d/t: VTE low risk, No contraindications No VTE Pharm Prophylaxis d/t: VTE low risk, No contraindications VTE Diagnosis: No VTE Type: NONE VTE Confirmed by (Test): NONE Sepsis (View Protocol) Severe Sepsis Present: No Septic Shock Septic Shock Present: No Miscellaneous Documentation Attending Case Discussed With: KAREN ESCUDERO MD Primary Care Physician: KAREN ESCUDERO MD Patient sees these Specialists cardiology Level of Patient Care: Telemetry DEMARCO CHU 11/15/16 1623: Resident Review Statement Resident Statement: examined this patient, discussed with industrial engineering intern, agreed with industrial engineering intern Other Findings: Patient is a 71-year-old woman with past medical significant for diabetes on metformin, history of aortic aneurysm, Schatzki's rings,hyperlipidemia, constipation, GERD, admitted to [facility] in April 2016 with concerns of new onset CHF and stable angina(EF was noted to be 30%), had cardiac cath in the same month April 2016 at [facility] for the concerns of CT status post 2 cardiac stents and AICD placed was sent in from [place] cardiac physical for the evaluation of sudden onset palpitations, dizziness associated with nausea As mentioned above patient had a cardiac cath done in April 2016 at [facility], 3 weeks after discharge she was seen at her analytics associate office, analytics associate office Dr. CUNNINGHAM [phone], was sent in again to [place] with concerns of hypotension. Patient remained symptom-free for wants most 3-4 months, she has been doing well with the cardiac rehabilitation for the last 3-4 weeks today in the morning while performing at the physical therapy she felt sudden palpitations associated with dizziness and nausea And response was called in and she was immediately brought to the ED for further evaluation. Patient denied any chest discomfort or trouble breathing denied any recent infections fevers no urinary bowel habit changes Vitals on admission temperature 97.6, pulse 98, respiratory rate 20, his blood pressure 168/70 saturating more than 96% on room air. On examination: General Appearance Alert, Oriented X3, Cooperative, No Acute Distress Skin No Rashes, No Breakdown, No Significant Lesion HEENT Atraumatic, PERRLA, EOMI, Mucous Membr. moist/pink Neck Supple, No thryomegaly, +2 Carotid Pulse wo Bruit Lymphatic Cervical nl Cardiovascular Regular Rate, Normal S1, Normal S2 Lungs : Lungs clear to auscultation bilaterally. Abdomen Normal Bowel Sounds, Soft, No Tenderness, No Hepatospenomegaly, No Masses Neurological Normal Speech, Strength at 5/5 X4 Ext, Normal Tone, Sensation Intact Extremities No Clubbing, No Cyanosis, 1+ edema of bilateral lower extremities. Vascular Pulses Symmetrical, Pertinent labs on admission: WBC count H&H low 10.5/31.4 close to the baseline elevated BUN/creatinine 2.8/ 1.1 baseline creatinine around 0.7, blood glucose 213,elevated proBNP 9200, elevated d-dimer 507. EKG done in the ED showed normal sinus rhythm QTC was prolonged 533. CTA :no evidence of PE. Assessment and plan 1.Acute onset palpitations with dizziness(possible vasovagal syncope/dehydration /orthostatic hypotension /cardiogenic-arrhythmias): * Keep the patient in observation for 24 hours on telemetry floor. * We'll do serial troponins and EKG rule out any underlying ACS(provided recent history of CT in April 2016 status post 2 stents in LAD). * Repeat echocardiogram * Cardio consult with Dr. Blackmon has been obtained will follow the recommendations. * Check orthostats * Watch for any hemodynamic stability 2.History of recent cardiac cath April 2016 status post 2 stents in LAD: * Continue home medications including aspirin, Belinta, lisinopril, carvedilol. 3.History of recently diagnosed systolic heart failure: * Repeat echocardiogram continue spironolactone and Lasix 4. QTC prolongation * Repeat EKG avoid any QTC prolonging drugs. 5. Acute kidney injury most likely due to dehydration * Promote overhydration, avoid any IV fluids provided history of low EF * Repeat BEP tomorrow. 6. History of GERD. * Continue home medications. 7. hypomagnesemia: * Check Mg levels continue home dose of medication. 8 History of COPD * Continue medications. 9 History of diabetes mellitus * Hold metformin and pioglitazone * will start the patient on insulin sliding scale. 9. Mild pain controlled with Tylenol for moderate pain continue tramadol 10. DVT prophylaxis subcutaneous heparin 11. Patient is full code.
--- NOTE | 2016-11-15 16:13 | NUR ---
REPEAT TROPONIN DRAWN AND SENT TO LAB.
--- NOTE | 2016-11-15 16:21 | CT SCAN REPORT ---
EXAMINATION: CT ANGIOGRAM OF THE CHEST WITH AND WITHOUT CONTRAST (CT PULMONARY ANGIOGRAM FOR PE) CLINICAL INFORMATION: Chest pain with elevated d-dimer. COMPARISON: 08/11/2015. TECHNIQUE: Prior to contrast administration, noncontrast localization images were obtained. Subsequently, multidetector volumetric imaging was performed from the thoracic inlet to below the diaphragms following the administration of 95 mL Optiray 350 intravenous contrast. No contrast reaction reported. Sagittal, coronal, and MIP oblique sagittal reformatted images were obtained on the CT workstation, uploaded to PACS, and reviewed. Total exam dose-length product 301 mGy-cm. FINDINGS: QUALITY OF STUDY/CONTRAST BOLUS: Satisfactory PULMONARY ARTERIES: The pulmonary arterial tree is well opacified without evidence of filling defects to suggest underlying emboli. THORACIC AORTA: There are atherosclerotic aortic changes without evidence of aneurysm or dissection on this exam which was focused on the pulmonary arterial tree. LUNG: Fairly extensive emphysematous changes are again noted predominantly involving the upper lobes. There is no evidence of suspicious appearing pulmonary nodules PLEURA: There are trace bilateral pleural effusions, a new finding compared with the previous exam. MEDIASTINUM: There is no lower cervical, mediastinal, or hilar lymphadenopathy. There is a small sliding hiatal hernia suspected. CHEST WALL/AXILLA: No axillary or internal mammary lymphadenopathy. OSSEOUS STRUCTURES: Osteopenic. There is a mild L1 compression deformity without evidence of an acute fracture line on today's exam which is new compared with the most recent cross-sectional exams, abdomen and pelvis angiogram 01/18/2016. No aggressive appearing osseous lesions are seen. UPPER ABDOMEN: There is extensive atherosclerotic aortic calcification with the proximal portion of the previously identified abdominal aortic aneurysm unchanged in appearance. The entire aneurysm is not included. Stomach is debris-filled likely a recently ingested meal. Included colon is stool-filled. IMPRESSION: 1. No evidence of pulmonary embolism. 2. Fairly extensive emphysematous changes are again noted. 3. Extensive atherosclerotic aortic changes with abdominal aortic aneurysm not completely evaluated on today's exam. 4. L1 compression deformity is new compared with the 01/18/2016 exam, clinical correlation recommended. VTE: Negative for pulmonary embolism.
[2016-11-15] MEDS ORDERED: TRAZODONE HCL50 M1 PO (16:22)
[2016-11-15] MEDS ORDERED: VITAMIN B COMP1 EACH PO (16:22)
--- NOTE | 2016-11-15 16:22 | PN- Student ---
Subjective Subjective: HPI: Ms. Gillis is a 71 year old female with PMHx significant for diabetes mellitus, hyperlipidemia, GERD, Aortic Aneurysm, Schatzkis ring, CHF, and acute TN 05/11/16 status post 2 stent and AICD placement at [facility]. She presents today with complaints of palpitations, SOB, and feeling lightheaded earlier today while doing a seated exercise at cardiac rehab. Previously patient had been doing well in cardiac rehab with no episodes. Patient was transported to [facility] ED via ambulance. Patient denies sweating, nausea, vomiting, or syncope at that time. Curently the patient states she feels fine. Her current kineseologist is Dr. Cunningham. PSHx: Two stents and AICD placed 05/11/16 at [facility] following AMI. Patient is unaware of what kind of stent was placed. Social Hx: Patient quit smoking following AMI 05/11/16. Before that smoked 1 pack/day for 50yrs. Patient sylvia alcohol use or use of illicit drugs. ROS Head: NC/AT Eyes: Wears glasses, has cataracts bilaterally. No blurry vision. Cardiac: see above HPI Respiratory: see above HPI GI: No Nausea or vomiting. No Bowel changes. Allergies: NKDA. Allergic to squash posion tayler. Objective Objective: Physical Exam General: Patient is a female in no acute distress. Dressed in hospital gown with adequate hygiene and affect. Skin: Warm moist with no visible rashes. Eyes: Pt wears glasses and has cataracts. PERRLA. Cardiac: Normal Rate. Normal S1S2. No murmmurs, rubs or gallops. Respiratory: Lungs normal to auscultation bilaterally posteriorly. GI: Normal active bowl sounds. Non-tender, soft to palpation. Vasculature: Dorsalis pedis 2+ bilaterally. No edema. Results Results: Laboratory Tests 11/15/16 1611: Troponin I 0.02 11/15/16 0932: Anion Gap 13, Estimated GFR 49 L, BUN/Creatinine Ratio 25.5 H, Glucose 213 H, Calcium 9.3, Magnesium 1.4 L, Total Bilirubin 0.6, AST 21, ALT 25, Alkaline Phosphatase 144 H, Troponin I 0.02, Nes-H-Hxknyvsnffo Pept 9700 H, Total Protein 6.7, Albumin 4.0, Globulin 2.7, Albumin/Globulin Ratio 1.5, D-Dimer High Sensitivty 507 H, CBC w Diff NO MAN DIFF REQ, RBC 3.87 L, MCV 81.0, MCH 27.1, RDW 18.3 H, MPV 8.1, Gran % 68.7, Lymphocytes % 20.5, Monocytes % 7.2, Eosinophils % 2.9, Basophils % 0.7, Absolute Granulocytes 6.1, Absolute Lymphocytes 1.8, Absolute Monocytes 0.6, Absolute Eosinophils 0.3, Absolute Basophils 0.1, PUBS MCHC 33.5 EKG Both EKG at 9:21 and 16:05 showed prolonged QTc. 533 and 492 respectively. Patient is currently taking Magnesium oxide 400mg daily and states she took her pill today as well. Assessment/Plan Assessment: 1. Acute onset palpitations, SOB, and feeling light headed during exercise. My differential includes vasovagal hypotension, orthostatic hypotension, dehydration, and an acute coronary syndrome. 2. Elevated BUN and Creatinine (most likely acute kidney injury due to dehydration) 3. QTc prolongation 4. Recent CHF diagnosis 5. Recent AMI and stent placement 6. History of Diabetes Mellitus 7. History of hyperlipidemia 8. Hypomagnesemia 9. History of GERD Plan: 1. Acute onset palpitations, SOB, and feeling light headed during exercise. My differential includes vasovagal hypotension, orthostatic hypotension, dehydration, and an acute coronary syndrome. * Will keep patient in telemetry for overnight monitoring, serial troponins, EKGs, and orthostats. Re-evaluate in the morning and follow up with cardiology. 2. Elevated BUN and Creatinine (most likely acute kidney injury due to dehydration) * Repeat chemistry tomorrow. Avoid any renotoxic medications. 3. QTc prolongation * Repeat EKG and avoid any QT prolonging medications. 4. Recent CHF diagnosis * Continue Spironolactone and furosemide. Repeat Echo tomorrow. 5. Recent AMI and stent placement * Continue aspirin, lisinopril, carvedilol and Berilinta. 6. History of Diabetes Mellitus * Continue metformin and Proglitazone. 7. History of hyperlipidemia * Continue Atorvostatin. 8. Hypomagnesemia * Continue Magnesium supplement. 9. History of GERD * Continnue omeprazole
[2016-11-15] MEDS ORDERED: METFORMIN HCL500 M3 PO (16:23)
[2016-11-15] MEDS ORDERED: CYCLOBENZAPRINE10 M1 PO (16:24)
[2016-11-15] MEDS ORDERED: LISINOPRIL2.5 M1 PO (16:24)
[2016-11-15] MEDS ORDERED: CARVEDILOL3.125 M1 PO (16:24)
[2016-11-15] MEDS ORDERED: SPIRONOLACTONE25 M1 PO (16:25)
[2016-11-15] MEDS ORDERED: ONDANSETRON HCL4 MG PO (16:25)
--- NOTE | 2016-11-15 16:25 | NUR ---
PT GOING TO ROOM 172-1.
[2016-11-15] MEDS ORDERED: BRILINTA90 M1 PO (16:26)
[2016-11-15] MEDS ORDERED: TORSEMIDE20 M1 PO (16:27)
--- NOTE | 2016-11-15 17:30 | NUR ---
REPORT GIVEN TO SUPERINTENDENT. TRANSPORT BOOKED AND PT UPDATED.
--- NOTE | 2016-11-15 18:02 | PN- Att Addend ---
Attending Addendum Attending Brief Note 71-year-old white female with recent cardiac history of chest pain, congestive heart failure status post stents, doing her cardiac rehabilitation this morning and suddenly she became lightheaded little chest tightness and palpitations, patient was sent to the ER for evaluation, her research programmer would like her to be kept on observation to make sure no acute coronary events going on will be on stationary plant operators research programmer will evaluate her and have serial EKGs and serial troponins, reevaluate in the morning if stable start disposition plans. Laboratory Tests 11/15 11/15 1611 0932 Chemistry Sodium (137 - 145 mmol/L) 137 Potassium (3.5 - 5.1 mmol/L) 4.6 Chloride (98 - 107 mmol/L) 99 Carbon Dioxide (22 - 30 mmol/L) 24 Anion Gap (5 - 16) 13 BUN (7 - 17 mg/dL) 28 H Creatinine (0.5 - 1.0 mg/dL) 1.1 H Estimated GFR (>60 ml/min) 49 L BUN/Creatinine Ratio (7 - 25 %) 25.5 H Glucose (65 - 99 mg/dL) 213 H Calcium (8.4 - 10.2 mg/dL) 9.3 Magnesium (1.6 - 2.3 mg/dL) 1.4 L Total Bilirubin (0.2 - 1.3 mg/dL) 0.6 AST (14 - 36 U/L) 21 ALT (9 - 52 U/L) 25 Alkaline Phosphatase (<127 U/L) 144 H Troponin I (< 0.11 ng/ml) 0.02 0.02 Qkm-X-Qjyweyolbem Pept (<125 pg/mL) 9700 H Total Protein (6.3 - 8.2 g/dL) 6.7 Albumin (3.5 - 5.0 g/dL) 4.0 Globulin (1.9 - 4.2 gm/dL) 2.7 Albumin/Globulin Ratio (1.1 - 2.2 %) 1.5 Coagulation D-Dimer High Sensitivty (0 - 243 ng/ml) 507 H Hematology CBC w Diff NO MAN DIFF REQ WBC (4.8 - 10.8 /CUMM) 8.9 RBC (4.20 - 5.40 /CUMM) 3.87 L Hgb (12.0 - 16.0 G/DL) 10.5 L Hct (37 - 47 %) 31.4 L MCV (81.0 - 99.0 FL) 81.0 MCH (27.0 - 31.0 PG) 27.1 RDW (11.5 - 14.5 %) 18.3 H Plt Count (130 - 400 /CUMM) 233 MPV (7.4 - 10.4 FL) 8.1 Gran % (42.2 - 75.2 %) 68.7 Lymphocytes % (20.5 - 51.1 %) 20.5 Monocytes % (1.7 - 9.3 %) 7.2 Eosinophils % (0 - 5 %) 2.9 Basophils % (0.0 - 2.0 %) 0.7 Absolute Granulocytes (1.4 - 6.5 /CUMM) 6.1 Absolute Lymphocytes (1.2 - 3.4 /CUMM) 1.8 Absolute Monocytes (0.10 - 0.60 /CUMM) 0.6 Absolute Eosinophils (0.0 - 0.7 /CUMM) 0.3 Absolute Basophils (0.0 - 0.2 /CUMM) 0.1 PUBS MCHC (33.0 - 37.0 G/DL) 33.5
[2016-11-15 18:16] VITALS: BP 96/50
[2016-11-16 01:07] VITALS: BP 100/58
[2016-11-16 06:40] VITALS: BP 100/76
--- NOTE | 2016-11-16 07:47 | PN- Att Addend ---
Attending Addendum Attending Brief Note Covering attending note. Patient is feeling fine and she has no chest pressure or shortness of breath or palpitations. She been ambulating well and she was to go home. Intake & Output 11/16 0800 11/16 0000 11/15 1600 Intake Total 100 Output Total Balance 100 Intake, Oral 100 Patient 131 lb Weight Current Medications Sig/Andrews Start time Last Medication Dose Route Stop Time Status Admin Acetaminophen 650 MG Q6P PRN 11/15 1530 AC PO Aspirin 0 .STK-MED ONE 11/15 1025 DC PO Aspirin 81 MG ONCE ONE 11/15 0945 DC 11/15 PO 11/15 0946 1020 Aspirin 81 MG ONCE ONE 11/15 0945 DC 11/15 PO 11/15 0946 1020 Aspirin 81 MG ONCE ONE 11/15 0945 DC 11/15 PO 11/15 0946 1020 Aspirin Buffered 81 MG DAILY 11/16 1000 AC PO Atorvastatin Calcium 40 MG DAILY 11/15 1714 AC PO Carvedilol 3.125 MG BID 11/15 2200 AC 11/15 PO 2140 Cyclobenzaprine HCl 10 MG Q8P PRN 11/15 1730 AC PO Heparin Sodium 5,000 UNIT Q8 11/15 2200 AC 11/16 (Porcine) SC 0548 Insulin Aspart 0 TIDAC 11/16 0800 AC SC Lisinopril 2.5 MG DAILY 11/16 1000 AC PO Magnesium Oxide 400 MG DAILY 11/16 1000 AC PO Magnesium Sulfate 1 GM ONCE ONE 11/16 0130 DC 11/16 Dextrose/Water 100 ML IV 11/16 0529 0143 Morphine Sulfate 1 MG Q6-PRN PRN 11/15 1530 DC IV Omeprazole 40 MG DAILY AC 11/16 0700 AC 11/16 PO 0544 Oxycodone HCl 5 MG Q6P PRN 11/15 1530 AC PO Spironolactone 25 MG DAILY 11/16 1000 AC PO Ticagrelor 90 MG BID 11/15 2200 AC 11/15 PO 2140 Torsemide 20 MG 0730,1630 11/16 0730 AC PO Tramadol HCl 50 MG Q4-6 PRN PRN 11/15 1730 AC PO Trazodone HCl 50 MG Q8P PRN 11/15 1730 AC 11/15 PO 2146 Laboratory Tests 11/16 11/15 11/15 11/15 0734 2250 1611 0932 Chemistry Sodium (137 - 145 mmol/L) Pending 137 Potassium (3.5 - 5.1 mmol/L) Pending 4.6 Chloride (98 - 107 mmol/L) Pending 99 Carbon Dioxide (22 - 30 mmol/L) Pending 24 Anion Gap (5 - 16) Pending 13 BUN (7 - 17 mg/dL) Pending 28 H Creatinine (0.5 - 1.0 mg/dL) Pending 1.1 H Estimated GFR (>60 ml/min) 49 L BUN/Creatinine Ratio (7 - 25 %) Pending 25.5 H Glucose (65 - 99 mg/dL) 213 H Calcium (8.4 - 10.2 mg/dL) 9.3 Magnesium (1.6 - 2.3 mg/dL) 1.4 L Total Bilirubin (0.2 - 1.3 mg/dL) 0.6 AST (14 - 36 U/L) 21 ALT (9 - 52 U/L) 25 Alkaline Phosphatase (<127 U/L) 144 H Troponin I (< 0.11 ng/ml) 0.02 0.02 0.02 Pub-R-Pkvqowiusev Pept (<125 pg/mL) 9700 H Total Protein (6.3 - 8.2 g/dL) 6.7 Albumin (3.5 - 5.0 g/dL) 4.0 Globulin (1.9 - 4.2 gm/dL) 2.7 Albumin/Globulin Ratio (1.1 - 2.2 %) 1.5 Coagulation D-Dimer High Sensitivty (0 - 243 ng/ml) 507 H Hematology CBC w Diff Pending NO MAN DIFF REQ WBC (4.8 - 10.8 /CUMM) Pending 8.9 RBC (4.20 - 5.40 /CUMM) Pending 3.87 L Hgb (12.0 - 16.0 G/DL) Pending 10.5 L Hct (37 - 47 %) Pending 31.4 L MCV (81.0 - 99.0 FL) Pending 81.0 MCH (27.0 - 31.0 PG) Pending 27.1 RDW (11.5 - 14.5 %) Pending 18.3 H Plt Count (130 - 400 /CUMM) Pending 233 MPV (7.4 - 10.4 FL) Pending 8.1 Gran % (42.2 - 75.2 %) 68.7 Lymphocytes % (20.5 - 51.1 %) 20.5 Monocytes % (1.7 - 9.3 %) 7.2 Eosinophils % (0 - 5 %) 2.9 Basophils % (0.0 - 2.0 %) 0.7 Absolute Granulocytes (1.4 - 6.5 /CUMM) 6.1 Absolute Lymphocytes (1.2 - 3.4 /CUMM) 1.8 Absolute Monocytes (0.10 - 0.60 /CUMM) 0.6 Absolute Eosinophils (0.0 - 0.7 /CUMM) 0.3 Absolute Basophils (0.0 - 0.2 /CUMM) 0.1 PUBS MCHC (33.0 - 37.0 G/DL) Pending 33.5 Vital Signs Date Time Temp Pulse Resp B/P B/P Pulse O2 O2 Flow FiO2 Mean Ox Delivery Rate 11/16 0640 98.6 102 20 100/76 97 Room Air 07/04 0107 98.5 99 20 100/58 98 Room Air 07/03 2140 96 96/50 07/03 2037 Room Air 07/03 1816 97.7 96 16 96/50 100 Room Air 07/03 1757 90 16 134/62 98 Room Air 07/03 1650 97.4 90 18 91/55 99 Room Air 07/03 1533 97.4 86 18 93/57 97 Room Air Room Air 07/03 1321 97.5 83 18 107/60 97 Room Air Room Air 07/03 0921 98 Room Air 07/03 0921 97.6 98 20 168/70 98 Room Air Intake & Output 11/16 0800 /04 0000 /03 1600 Intake Total 100 Output Total Balance 100 Intake, Oral 100 Patient 131 lb Weight On examination patient is awake alert oriented in no acute distress. Conjunctivae is pink, sclera is anicteric. Neck is supple JVD is not raised S1-S2 is normal Lungs air entry equal bilaterally no crepitations or rhonchi Abdomen is soft nontender bowel sounds are present No focal neurological deficit. Labs EKG shows normal sinus rhythm with left axis deviation and nonspecific ST-T changes on the lateral leads CTA of the chest IMPRESSION: 1. No evidence of pulmonary embolism. 2. Fairly extensive emphysematous changes are again noted. 3. Extensive atherosclerotic aortic changes with abdominal aortic aneurysm not completely evaluated on today's exam. 4. L1 compression deformity is new compared with the 01/18/2016 exam, clinical correlation recommended. VTE: Negative for pulmonary embolism. Assessment Angina during exercise. Patient of coronary artery disease status post stent and also defibrillator. Chronic enzymes are negative, will await for cardiology evaluation and decision regarding outpatient workup as well as discharge. Number to COPD continue with current management. Due to prophylaxis
[2016-11-16 08:10] LABS: ABSOLUTE BASOPHIL COUNT 0 /CUMM (0.0-0.2); ABSOLUTE EOSINOPHIL COUNT 0.2 /CUMM (0.0-0.7); ABSOLUTE GRANULOCYTE CT 8.6 /CUMM (1.4-6.5); ABSOLUTE LYMPH COUNT 1.8 /CUMM (1.2-3.4); ABSOLUTE MONOCYTE COUNT 0.5 /CUMM (0.10-0.60); BASOPHIL % 0 % (0.0-2.0); EOSINOPHIL % 1.8 % (0-5); GRANULOCYTE % 77.8 % (42.2-75.2); HEMATOCRIT 35.3 % (37-47); MEAN CORPUSCULAR HGB 27.2 PG (27.0-31.0); MEAN CORPUSCULAR HGB CONC 33.4 G/DL (33.0-37.0); MEAN CORPUSCULAR VOLUME 81.6 FL (81.0-99.0); MEAN PLATELET VOLUME 8.3 FL (7.4-10.4); PLATELET COUNT 248 /CUMM (130-400); RBC DISTRIBUTION WIDTH 18.9 % (11.5-14.5); RED BLOOD CELL CT 4.32 /CUMM (4.20-5.40)
[2016-11-16 09:16] VITALS: BP 110/70
--- NOTE | 2016-11-16 12:42 | PN- Cardiology ---
Subjective Subjective: Feeling better. No further chest discomfort, palpitations, or dizziness. No syncope. No diaphoresis. No nausea or vomiting. No severe arrhythmias on telemetry. Objective Vital Signs and I&Os Vital Signs Date Time Temp Pulse Resp B/P B/P Pulse O2 O2 Flow FiO2 Mean Ox Delivery Rate 11/16 0916 110 110/70 / 0911 110 110/70 11/16 0911 110 110/70 11/16 0800 97 Room Air 11/16 0640 98.6 102 20 100/76 97 Room Air 11/16 0107 98.5 99 20 100/58 98 Room Air 11/15 2140 96 96/50 07/ 2037 Room Air 07 1816 97.7 96 16 96/50 100 Room Air 11/15 1757 90 16 134/62 98 Room Air 11/15 1650 97.4 90 18 91/55 99 Room Air 11/15 1533 97.4 86 18 93/57 97 Room Air Room Air 11/15 1321 97.5 83 18 107/60 97 Room Air Room Air Intake & Output 11/16 1600 11/16 0811/16 0000 11/15 1600 11/15 0800 11/15 0000 Intake Total 100 100 Output Total Balance 100 100 Intake, Oral 100 100 Patient 131 lb Weight Physical Exam: Gen: NAD HEENT: normal Lungs: clear to auscultation, normal resp. effort Heart: RRR, S1, S2, no murmurs Abdomen: Soft, nontender, no masses Extremities: 1+ edema Neuro: Alert and oriented x 3, cranial nerves intact Current Medications: Current Medications Sig/Andrews Start time Last Medication Dose Route Stop Time Status Admin Acetaminophen 650 MG Q6P PRN 11/15 1530 AC PO Aspirin Buffered 81 MG DAILY 11/16 1000 AC 11/16 PO 0911 Atorvastatin Calcium 40 MG DAILY 11/15 1714 AC 11/16 PO 0911 Carvedilol 3.125 MG BID 11/15 2200 AC 11/16 PO 0911 Cyclobenzaprine HCl 10 MG Q8P PRN 11/15 1730 AC PO Heparin Sodium 5,000 UNIT Q8 11/15 2200 AC 11/16 (Porcine) SC 0548 Insulin Aspart 0 TIDAC 11/16 0800 AC 11/16 SC 1200 Lisinopril 2.5 MG DAILY 11/16 1000 AC 11/16 PO 0911 Magnesium Oxide 400 MG DAILY 11/16 1000 AC 11/16 PO 0911 Magnesium Sulfate 1 GM ONCE ONE 11/16 0130 DC 11/16 Dextrose/Water 100 ML IV 11/16 528 0143 Morphine Sulfate 1 MG Q6-PRN PRN 11/15 1530 DC IV Omeprazole 40 MG DAILY AC 11/16 0700 AC 11/16 PO 0544 Oxycodone HCl 5 MG Q6P PRN 11/15 1530 AC PO Spironolactone 25 MG DAILY 11/16 1000 AC 11/16 PO 0911 Ticagrelor 90 MG BID 11/15 2200 AC 11/16 PO 0911 Torsemide 20 MG 0730,1630 11/16 0730 AC 11/16 PO 0747 Tramadol HCl 50 MG Q4-6 PRN PRN 11/15 1730 AC PO Trazodone HCl 50 MG Q8P PRN 11/15 1730 AC 11/15 PO 2146 Results Last 48 Hrs of Labs/Mics: Laboratory Tests 11/16/16 0734: Anion Gap 14, Estimated GFR 49 L, BUN/Creatinine Ratio 23.6, CBC w Diff NO MAN DIFF REQ, RBC 4.32, MCV 81.6, MCH 27.2, RDW 18.9 H, MPV 8.3, Gran % 77.8 H, Lymphocytes % 16.3 L, Monocytes % 4.1, Eosinophils % 1.8, Basophils % 0 L, Absolute Granulocytes 8.6 H, Absolute Lymphocytes 1.8, Absolute Monocytes 0.5, Absolute Eosinophils 0.2, Absolute Basophils 0, PUBS MCHC 33.4 11/15/16 2250: Troponin I 0.02 11/15/16 1611: Troponin I 0.02 11/15/16 0932: Anion Gap 13, Estimated GFR 49 L, BUN/Creatinine Ratio 25.5 H, Glucose 213 H, Calcium 9.3, Magnesium 1.4 L, Total Bilirubin 0.6, AST 21, ALT 25, Alkaline Phosphatase 144 H, Troponin I 0.02, Mln-D-Hudqttzgqqn Pept 9700 H, Total Protein 6.7, Albumin 4.0, Globulin 2.7, Albumin/Globulin Ratio 1.5, D-Dimer High Sensitivty 507 H, CBC w Diff NO MAN DIFF REQ, RBC 3.87 L, MCV 81.0, MCH 27.1, RDW 18.3 H, MPV 8.1, Gran % 68.7, Lymphocytes % 20.5, Monocytes % 7.2, Eosinophils % 2.9, Basophils % 0.7, Absolute Granulocytes 6.1, Absolute Lymphocytes 1.8, Absolute Monocytes 0.6, Absolute Eosinophils 0.3, Absolute Basophils 0.1, PUBS MCHC 33.5 Assessment/Plan Assessment/Plan Assessment: 1. CAD, status post recent stent 2. Chronic systolic heart failure with ischemic cardiomyopathy 3. Palpitations, rule out for Isiah infarction. No significant arrhythmias. Plan: * Continue current medications. * Discharge to home. * Home with further symptoms. * Follow up with her sanitation technician in one week. Continue telemetry? No
--- NOTE | 2016-11-16 12:51 | PN-Observation ---
Observation Note Observation Note _ I have personally examined ALLI OLSEN. her disposition is uncertain at this time. Before a determination can be made, she requires continued observation for the following reasons ACUTE ONSET OF PALPITATIONS WITH DIZZINESS (VASOVAGAL VS DEHYDRATION BS CARDIOGENIC ARRHYTHMIAS) Assessment/Plan Assessment: Assessment: This patient is a 71 year old female with a PMH significant for CAD 2 STENTS AICD PLACED 04/30 POST [place], AA, CHF, DM, HLD that presented from her cardiac rehabilitation program with acute complains of dizziness, palpitations, SOB. Symptoms have currently resolved but her hydraulic blocker has requested observation. 1. Palpitations, dizziness, SOB: dehydration vs. hypotension vs. vasovagal vs. arrhythmia vs. ACS vs. CHF. CAD, status post recent stent X2 AND AICD. Chronic systolic heart failure with ischemic cardiomyopathy, qtc prolongation to 533. troponins negative 3. ATN 4. HYPOMAGNESEMIA 5. COPD 6. GERD 7. DM Problem List: 1. CHF (congestive heart failure) 2. Diabetes mellitus type 2 in nonobese 3. COPD (chronic obstructive pulmonary disease) 4. Hypomagnesemia 5. GERD (gastroesophageal reflux disease) 6. Acute kidney injury 7. CAD (coronary artery disease) Plan: Plan: 1. * Dr. Ortiz saw patient - follow consult note - followup with her hydraulic blocker in one week for further outpatient workup * Observe patient on tele for arrhythmic changes * Trend EKGs and troponins: so far does not support ACS * Repeat echocardiogram * Orthostatics * continue aspirin, lisinopril, carvedilol 2. ATN CR 1.1 Likely will resolve with rehydration. Watch Cr and if worsens, consider removing lisinopril. 3. avoid zofran and other QTC prolonging drugs 4. replete mg. 5. continue copd home meds 6. continue home gerd meds 7. * sliding scale insulin * Hold metformin and pioglitazone DVT/Prophylaxis: pharmacological Discharge Plan Stable for Discharge? Yes Anticipated Discharge (Day): today Subjective Follow-up For: 1. Palpitations, dizziness, SOB 3. ATN 4. HYPOMAGNESEMIA 5. COPD 6. GERD 7. DM Complaints: no complaints Tele-Events Since Last Visit: nsr with sinus tachy bouts during the night. 1st degree heart block [place] .22. rates 97-108. PVCs and triplets during the night. Subjective: PATIENT WAS EXAMINED AT BEDSIDE, FEELS WELL AND WANTS TO GO HOME. DENIES CP OR SOB OR PALPITATIONS Review of Systems Constitutional: Denies: no symptoms. EENTM: Denies: no symptoms. Cardiovascular: Denies: no symptoms. Respiratory: Denies: no symptoms. Gastrointestinal: Denies: no symptoms. Objective Last 24 Hrs of Vital Signs/I&O Vital Signs Date Time Temp Pulse Resp B/P B/P Pulse O2 O2 Flow FiO2 Mean Ox Delivery Rate 11/16 0916 110 110/70 11/16 0911 110 110/70 11/16 0911 110 110/70 11/16 0800 97 Room Air / 0640 98.6 102 20 100/76 97 Room Air 11/16 0107 98.5 99 20 100/58 98 Room Air 11/15 2140 96 96/50 07/ 2037 Room Air / 1816 97.7 96 16 96/50 100 Room Air / 1757 90 16 134/62 98 Room Air / 1650 97.4 90 18 91/55 99 Room Air / 1533 97.4 86 18 93/57 97 Room Air Room Air 07/ 1321 97.5 83 18 107/60 97 Room Air Room Air Intake & Output 11/16 1600 /04 0800 / 0000 Intake Total 100 100 Output Total Balance 100 100 Intake, Oral 100 100 Patient 131 lb Weight Physical Exam General Appearance: Alert, Oriented X3, Cooperative, No Acute Distress Skin: No Rashes, No Breakdown, No Significant Lesion Skin Temp/Moisture Exam: Warm/Dry Sepsis Skin Exam (color): Normal for Ethnicity HEENT: Atraumatic, PERRLA, EOMI, Mucous Membr. moist/pink Neck: Supple Cardiovascular: Regular Rate, Normal S1, Normal S2, No Murmurs, Gallops, Rubs Lungs: Clear to Auscultation, Normal Air Movement Abdomen: Normal Bowel Sounds, Soft, No Tenderness, No Hepatospenomegaly, No Masses Neurological: Normal Speech, Normal Tone, Sensation Intact Extremities: No Clubbing, No Cyanosis, No Edema, Normal Pulses, No Tenderness/ Swelling Vascular: Normal Pulses, Pulses Symmetrical Sepsis Peripheral Pulse Location: Radial Sepsis Peripheral Pulse Exam: Normal Current Medications: Current Medications Sig/Andrews Start time Last Medication Dose Route Stop Time Status Admin Acetaminophen 650 MG Q6P PRN 11/15 1530 AC PO Aspirin Buffered 81 MG DAILY 11/16 1000 AC 11/16 PO 0911 Atorvastatin Calcium 40 MG DAILY 11/15 1714 AC 11/16 PO 0911 Carvedilol 3.125 MG BID 11/15 2200 AC 11/16 PO 0911 Cyclobenzaprine HCl 10 MG Q8P PRN 11/15 1730 AC PO Heparin Sodium 5,000 UNIT Q8 11/15 2200 AC 11/16 (Porcine) SC 0548 Insulin Aspart 0 TIDAC 11/16 0800 AC 11/16 SC 1200 Lisinopril 2.5 MG DAILY 11/16 1000 AC 11/16 PO 0911 Magnesium Oxide 400 MG DAILY 11/16 1000 AC 11/16 PO 0911 Magnesium Sulfate 1 GM ONCE ONE 11/16 0130 DC 11/16 Dextrose/Water 100 ML IV 11/16 0529 0143 Morphine Sulfate 1 MG Q6-PRN PRN 11/15 1530 DC IV Omeprazole 40 MG DAILY AC 11/16 0700 AC 11/16 PO 0544 Oxycodone HCl 5 MG Q6P PRN 11/15 1530 AC PO Spironolactone 25 MG DAILY 11/16 1000 AC 11/16 PO 0911 Ticagrelor 90 MG BID 11/15 2200 AC 11/16 PO 0911 Torsemide 20 MG 0730,1630 11/16 0730 AC 11/16 PO 0747 Tramadol HCl 50 MG Q4-6 PRN PRN 11/15 1730 AC PO Trazodone HCl 50 MG Q8P PRN 11/15 1730 AC 11/15 PO 2146 Last 24 Hrs of Labs/Mics: Laboratory Tests 11/16/16 0734: Anion Gap 14, Estimated GFR 49 L, BUN/Creatinine Ratio 23.6, CBC w Diff NO MAN DIFF REQ, RBC 4.32, MCV 81.6, MCH 27.2, RDW 18.9 H, MPV 8.3, Gran % 77.8 H, Lymphocytes % 16.3 L, Monocytes % 4.1, Eosinophils % 1.8, Basophils % 0 L, Absolute Granulocytes 8.6 H, Absolute Lymphocytes 1.8, Absolute Monocytes 0.5, Absolute Eosinophils 0.2, Absolute Basophils 0, PUBS MCHC 33.4 11/15/16 2250: Troponin I 0.02 11/15/16 1611: Troponin I 0.02
--- NOTE | 2016-11-16 12:54 | Patient Discharge Instructions ---
Discharge Instructions General Discharge Information You were seen/treated for: CHEST PAIN Special Instructions: 1. PLEASE F/U WITH YOUR MEAT WRAPPER WITHIN 1 WEEK OF DISCHARGE. Diet Recommended Diet: Diabetic Activity Full Activity/No Limits: Yes ( TOLERATED) Acute Coronary Syndrome Inclusion Criteria At DC or during hospital stay patient has or had the following: ACS DIAGNOSIS No Discharge Core Measures Meds if any: Prescribed or Continued at Discharge Meds if any: NOT Prescribed or Continued at Discharge Congestive Heart Failure Inclusion Criteria At DC or during hospital stay patient has or had the following: CHF DIAGNOSIS No Discharge Core Measures Meds if any: Prescribed or Continued at Discharge Meds if any: NOT Prescribed or Continued at Discharge Cerebrovascular accident Inclusion Criteria At DC or during hospital stay patient has or had the following: CVA/TIA Diagnosis No Discharge Core Measures Meds if any: Prescribed or Continued at Discharge Meds if any: NOT Prescribed or Continued at Discharge Venous thromboembolism Inclusion Criteria VTE Diagnosis No VTE Type NONE VTE Confirmed by (Test) NONE Discharge Core Measures - Per Current guidelines, there needs to be overlap - treatment for the first 5 days of Warfarin therapy. - If discharged on Warfarin prior to 5 days of - overlap therapy, the patient will need to be - assessed for post discharge needs including - *Post discharge parental anticoagulation - *Warfarin and/or parental anticoagulation education - *Follow up date to check INR post discharge At least 5 days overlap therapy as Inpatient No Meds if any: Prescribed or Continued at Discharge Note: Overlap Therapy is Warfarin and Anticoagulant Meds if any: NOT Prescribed or Continued at Discharge
== END 2016-11-16 13:45 ==
LOC: ERH 09:04 → ERHI 15:00 → ENRESERV 15:55 → ENTRNSPT 17:31 → 1NO 18:05 → CMPTRNSPT 20:05 → ENPENDDIS 11-16 12:59 → 1NO 11-16 13:45
PROVIDERS: Physician Assistant; Student in an Organized Health Care Education/Training Program; ADMIT Internal Medicine
DX: R07.89 Other chest pain (principal); R00.2 Palpitations; R42 Dizziness and giddiness; I25.119 Atherosclerotic heart disease of native coronary artery with unspecified angina pectoris; I25.5 Ischemic cardiomyopathy; Z95.810 Presence of automatic (implantable) cardiac defibrillator; E11.9 Type 2 diabetes mellitus without complications; Z79.4 Long term (current) use of insulin; J44.9 Chronic obstructive pulmonary disease, unspecified; I71.4 Abdominal aortic aneurysm, without rupture; I50.9 Heart failure, unspecified; Z79.82 Long term (current) use of aspirin; J45.902 Unspecified asthma with status asthmaticus
CPT/HCPCS: 6020; 36415; 82436; 93005; 93010; 96372; G0378; J1644; J3490